=== PATIENT | female | born 1990 | race Caucasian/White ===

== ENCOUNTER 2017-01-16 11:49 | Emergency (ER) | payer OTHER ==
[2017-01-16 11:58] VITALS: BP 141/87
--- NOTE | 2017-01-16 13:11 | ED ---
Complex/Multi-Sys Presentation - HPI Summary HPI Summary: Pt presents to the hospital by EMS. Pt states she injects heroin 2 times a week x 3 years. Pt states she has narcan from the exchange. Pt states today she was down [facility] and had heroin. Pt states called her brother for a ride home. Brother, per report, found pt unresponsive and administered narcan. EMS called and gave an additional 2 doses of Narcan. Upon arrival to the ED, pt states she is embarrassed and mad at herself. Pt denies cp, sob, abd pain. Denies n/v. No fevers, chill. No concern for wound infection at injection sites. Pt without complaints at time of eval. Pt has never undergone detox, pt without current interest in detox - History Of Current Complaint Chief Complaint: EDOverdose Time Seen by Provider: 01/16/17 11:57 Hx Obtained From: Patient, EMS Onset/Duration: Lasting Minutes Timing: Minutes Severity Currently: None Severity Initially: Severe Location: Negative Associated Signs And Symptoms: Positive: Decreased Responsiveness, Weakness, Diaphoresis - Allergies/Home Medications Allergies/Adverse Reactions: Allergies Allergy/AdvReac Type Severity Reaction Status Date / Time Azithromycin [From Zithromax] Allergy Difficulty Verified 07/14/13 23:14 Breathing/Wheezing Clarithromycin [From Biaxin] Allergy Difficulty Verified 07/14/13 23:14 Breathing/Wheezing Home Medications: Home Medications LoraTADine TAB(NF) [Claritin 10 MG TAB(NF)] 10 mg PO DAILY 01/16/17 [History Confirmed 01/16/17] Mirtazapine TAB* [Remeron TAB*] 15 mg PO BEDTIME 01/16/17 [History Confirmed ] Omeprazole CAP* [Prilosec CAP* 20 MG] 40 mg PO DAILY 01/16/17 [History Confirmed 01/16/17] oxyCODONE TAB* [Roxycodone TAB 5 mg*] 20 mg PO Q6H PRN 01/16/17 [History Confirmed 01/16/17] PMH/Surg Hx/FS Hx/Imm Hx Previously Healthy: Yes Psychiatric History: Reports: Hx Anxiety Infectious Disease History: No Infectious Disease History: Denies: Traveled Outside the [place] in Last 30 Days - Family History Known Family History: Positive: Diabetes - mom - Social History Occupation: Unemployed Lives: Alone Alcohol Use: Rare Substance Use Type: Reports: None Hx Tobacco Use: Yes - 1/2 ppd Smoking Status (MU): Heavy Every Day Tobacco Smoker Review of Systems Constitutional: Negative Eyes: Negative ENT: Negative Cardiovascular: Negative Respiratory: Negative Gastrointestinal: Negative Genitourinary: Negative Musculoskeletal: Negative Skin: Negative Neurological: Negative Psychological: Normal All Other Systems Reviewed And Are Negative: Yes Physical Exam Triage Information Reviewed: Yes Vital Signs On Initial Exam: Initial Vitals Temp Pulse Resp BP Pulse Ox 98.1 F 97 20 141/87 95 01/16/17 11:53 01/16/17 11:53 01/16/17 11:53 01/16/17 11:53 01/16/17 11:53 Vital Signs Reviewed: Yes Appearance: Positive: Well-Appearing, No Pain Distress, Well-Nourished Skin: Positive: Warm, Skin Color Reflects Adequate Perfusion, Dry Head/Face: Positive: Normal Head/Face Inspection Eyes: Positive: Normal, EOMI, KEKE, Conjunctiva Clear ENT: Positive: Pharynx normal, TMs normal Neck: Positive: Supple, Nontender, No Lymphadenopathy Respiratory/Lung Sounds: Positive: Clear to Auscultation, Breath Sounds Present. Negative: Wheezes Cardiovascular: Positive: Normal, RRR. Negative: Murmur Abdomen Description: Positive: Nontender, No Organomegaly, Soft Bowel Sounds: Positive: Present Musculoskeletal: Positive: Normal Neurological: Positive: Normal, Sensory/Motor Intact, Alert, Oriented to Person Place, Time. Negative: Slurred Speech Psychiatric: Positive: Normal AVPU Assessment: Alert - Shelbi Coma Scale Best Eye Response: 4 - Spontaneous Best Motor Response: 6 - Obeys Commands Best Verbal Response: 5 - Oriented Diagnostics - Vital Signs Vital Signs Temp Pulse Resp BP Pulse Ox 01/16/17 11:53 98.1 F 97 20 141/87 95 - Laboratory Lab Statement: Any lab studies that have been ordered have been reviewed, and results considered in the medical decision making process. Re-Evaluation - Re-Evaluation First Eval Re-Evaluation Time: 12:48 Change: Improved - PT feels well, + po - no complaints states brother will bring her home and younger brother will be with her today and tonight Complex Multi-Symp Course/Dx Assessment/Plan: Pt presents by EMS following narcan use followig heroin injection. Pt without complaints at time of presentation. d/w pt - will monitor for 2 hours, brother will drive home and be with her at this time. Pt cooperative and in agreement with plan - Diagnoses Provider Diagnoses: Opiate abuse, episodic Discharge - Discharge Plan Condition: Stable Disposition: HOME Patient Education Materials: Narcotic Abuse (ED), Opioid Overdose (ED) Referrals: Joey Amin MD [Primary Care Provider] - Additional Instructions: you should be with another adult for the remainder of the day today and tonight discuss with [facility] or your doctor if you have desire for opiate detoxification
== END 2017-01-16 14:44 | disposition home or self-care (01) ==
LOC: ED 11:49
DX: F11.10 Opioid abuse, uncomplicated (principal)
CPT/HCPCS: 99283

== ENCOUNTER 2017-05-31 19:07 | Emergency (ER) | payer MEDICAID ==
[2017-05-31] MEDS ORDERED: Ondansetron INJ* 2 MG/ML VIAL IV ONE (20:04)
[2017-05-31] MEDS ORDERED: NS 0.9% 1000 ML* 1,000 ML IV ONE (20:04)
[2017-05-31] MEDS ORDERED: Morphine INJ* 2 MG/ML 1 ML SYRINGE IV ONE (20:04)
--- NOTE | 2017-05-31 20:39 | ED ---
I, Oh,Diana, scribed for Vicente Orantes MD on 05/31/17 at 2015 . Abdominal Pain/Female - HPI Summary HPI Summary: This 26 y/o female presents to ED for RUQ pain since 3 days ago. Family member present at bedside reports that pain was spontaneously alleviated 2 days ago, but came back last night. Positive n/v. Pt decided to visit ED when she became concerned about possible gallbladder attack. PMHx includes gastritis and chronic back pain. - History of Current Complaint Chief Complaint: EDAbdPain Stated Complaint: ABD PAIN,VOMITTING Time Seen by Provider: 05/31/17 19:56 Hx Obtained From: Patient, Family/Teacher Learning Disabled, Medical Records Timing: Intermittent Episode Lasting Pain Intensity: 8 Pain Scale Used: 0-10 Numeric Location: Discrete At: RUQ Radiates: No Aggravating Factor(s): Nothing Alleviating Factor(s): Nothing Associated Signs and Symptoms: Positive: Nausea, Vomiting. Negative: Fever Allergies/Adverse Reactions: Allergies Allergy/AdvReac Type Severity Reaction Status Date / Time Azithromycin [From Zithromax] Allergy Difficulty Verified 05/31/17 19:24 Breathing/Wheezing Clarithromycin [From Biaxin] Allergy Difficulty Verified 05/31/17 19:24 Breathing/Wheezing PMH/Surg Hx/FS Hx/Imm Hx GI History: Reports: Other GI Disorders - gastritis Musculoskeletal History: Reports: Hx Back Problems - chronic back pain Psychiatric History: Reports: Hx Anxiety Infectious Disease History: No Infectious Disease History: Denies: Traveled Outside the [place] in Last 30 Days - Family History Known Family History: Positive: Diabetes - mom - Social History Alcohol Use: Rare Substance Use Type: Reports: None Hx Tobacco Use: Yes - 1/2 ppd Smoking Status (MU): Heavy Every Day Tobacco Smoker Review of Systems Negative: Fever Positive: Abdominal Pain - RUQ, Vomiting, Nausea All Other Systems Reviewed And Are Negative: Yes Physical Exam Triage Information Reviewed: Yes Vital Signs On Initial Exam: Initial Vitals Temp Pulse Resp BP Pulse Ox 98.5 F 79 16 145/75 98 05/31/17 19:25 05/31/17 19:25 05/31/17 19:25 05/31/17 19:25 05/31/17 19:25 Vital Signs Reviewed: Yes Appearance: Positive: Pain Distress - mild discomfort, Obese Skin: Positive: Warm Head/Face: Positive: Normal Head/Face Inspection Eyes: Positive: KEKE ENT: Positive: Hearing grossly normal Neck: Positive: Supple Respiratory/Lung Sounds: Positive: Clear to Auscultation, Breath Sounds Present Cardiovascular: Positive: RRR Abdomen Description: Positive: Soft, Other: - mild ruq tendewrness. Negative: Guarding Bowel Sounds: Positive: Present Musculoskeletal: Positive: Strength/ROM Intact Neurological: Positive: Alert, Oriented to Person Place, Time Psychiatric: Positive: Affect/Mood Appropriate Diagnostics - Vital Signs Vital Signs Temp Pulse Resp BP Pulse Ox 05/31/17 19:25 98.5 F 79 16 145/75 98 - Laboratory Result Diagrams: 05/31/17 20:35 05/31/17 20:35 Lab Statement: Any lab studies that have been ordered have been reviewed, and results considered in the medical decision making process. - Additional Comments Diagnostic Additional Comments: US Gallbladder -- cholelithiasis without evidence of biliary duct dilation. Re-Evaluation - Re-Evaluation First Eval Re-Evaluation Time: 22:02 Change: Improved - results d/w pt Abdominal Pain Fem Course/Dx - Course Course Of Treatment: This 26 y/o female presents to ED for three days old RUQ pain and n/v. PMHx includes gastritis and chronic back pain. Blood work indicates elevated WBC of 14.2, mildly elevated CRP of 7.59, and lipase less than 10. US gallbladder is noted with cholelithiasis without biliary duct dilation. Pt is discharged with surgery referral. - Diagnoses Provider Diagnoses: Biliary colic Discharge - Discharge Plan Condition: Stable Disposition: HOME Prescriptions: Naproxen TAB* [Naprosyn 250 mg TAB*] 500 mg PO BID #20 tab Patient Education Materials: Naproxen (By mouth), Biliary Colic (ED) Referrals: Alejandra Leal MD [Medical Doctor] - The documentation as recorded by the Ashwin schulte Soohyun accurately reflects the service I personally performed and the decisions made by me, Vicente Orantes MD.
[2017-05-31 20:48] LABS: Hematocrit 45 % (35-47); Mean Corpuscular HGB Conc 34 g/dl (31-36); Mean Corpuscular Hemoglobin 30 pg (27-31); Mean Corpuscular Volume 88 fL (80-97); Mean Platelet Volume 8 um3 (7.4-10.4); Red Blood Count 5.07 10^6/ul (4.0-5.4); Red Cell Distribution Width 14 % (10.5-15); White Blood Count 14.2 10^3/ul (3.5-10.8)
[2017-05-31 21:04] LABS: ALT 17 U/L (7-52); AST 13 U/L (13-39); Albumin 4.5 g/dL (3.2-5.2); Alkaline Phosphatase 102 U/L (34-104); Anion Gap 8 mmol/L (2-11); BUN/Creatinine Ratio 14.5 (8-20); Blood Urea Nitrogen 10 mg/dL (6-24); C Reactive Protein 7.59 mg/L (< 5.00); CO2 Carbon Dioxide 28 mmol/L (22-32); Calcium 9.7 mg/dL (8.6-10.3); Chloride 101 mmol/L (101-111); EGFR African American 130.3 (>60); EGFR Non-African American 101.3 (>60); Globulin 3.2 g/dL (2-4); Glucose 115 mg/dL (70-100); Lipase < 10 U/L (11.0-82.0); Magnesium 1.9 mg/dL (1.9-2.7); Potassium 3.6 mmol/L (3.5-5.0); Sodium 137 mmol/L (133-145); Total Protein 7.7 g/dL (6.4-8.9)
[2017-05-31 21:35] VITALS: BP 125/53
--- NOTE | 2017-05-31 21:49 | RAD ---
Indication: Abdominal pain. Real-time sonography of the right upper quadrant was performed. The liver is normal in size. No focal lesions or intrahepatic ductal dilatation is noted. The gallbladder demonstrates gallstones. No pericholecystic fluid or wall thickening is identified. The common duct measures 4 mm. Right kidney measures 11.2 x 5.0 x 6.6 cm. No hydronephrosis is noted. The visualized portions of the pancreas are unremarkable although most of the pancreas is obscured by overlying gas. Aorta and inferior vena cava are grossly unremarkable. IMPRESSION: Cholelithiasis without evidence of biliary ductal dilatation.
[2017-05-31] MEDS ORDERED: Ketorolac INJ* 30 MG/ML 1 ML VIAL IV PUSH ONE (21:55)
== END 2017-05-31 22:32 | disposition home or self-care (01) ==
LOC: ED 19:07
DX: K80.50 Calculus of bile duct without cholangitis or cholecystitis without obstruction (principal); R11.2 Nausea with vomiting, unspecified; R10.11 Right upper quadrant pain; M54.9 Dorsalgia, unspecified
CPT/HCPCS: 36415; 76705; 80053; 83605; 83690; 83735; 84702; 85025; 86140; 96374; 96375; 99283; J1885; J2270; J2405

== ENCOUNTER 2017-06-03 12:13 | Day surgery (SDC) | payer MEDICAID ==
[~2017-06-03 12:13] MED LIST: Buffered Lidocaine 0.9% SYRIN* 5 ML/SYR SYRINGE INTRADERM ONE; Famotidine IV* 10 MG/ML 2 ML (20 mg) IV ONE; PROCHLORPERAZINE INJ 5 MG/ML 2 ML VIAL IV PRN; ceFAZolin 2 GM PREMIX (*) 100 ML IVPB ONE; ceFAZolin 2 GM PREMIX (*) 50 ML IVPB ONE
[2017-06-03] MEDS ORDERED: Buffered Lidocaine 0.9% SYRIN* 5 ML/SYR SYRINGE ONE ×2 (12:23)
[2017-06-03] MEDS ORDERED: Famotidine IV* 10 MG/ML 2 ML (20 mg) ONE ×2 (12:23)
[2017-06-03] MEDS ORDERED: Midazolam* 1 MG/ML 5 ML VIAL (5 MG) ONE ×2 (15:23)
[2017-06-03] MEDS ORDERED: KETAMINE HCL* 50 MG/ML 10 ML VIAL ONE ×2 (15:23)
[2017-06-03] MEDS ORDERED: fentaNYL* 50 MCG/ML 2 ML VIAL (100 MCG VIAL) ONE ×6 (15:23→17:54)
[2017-06-03] MEDS ORDERED: Bupivacaine 0.5% W/EPI SDV* 30 ML VIAL ONE ×2 (15:48)
[2017-06-03] MEDS ORDERED: Bupivacaine 0.25% SDV* 30 ML ONE (15:48)
[2017-06-03] MEDS ORDERED: Morphine INJ* 10 MG/ML 1 ML SYRINGE ONE ×4 (16:13→17:54)
[2017-06-03] MEDS ORDERED: Propofol* 10 MG/ML 20 ML BTL IV PUSH ONE ×2 (16:20)
[2017-06-03] MEDS ORDERED: Glycopyrrolate IV* 0.2 MG/ML 1 ML VIAL ONE ×2 (16:20)
[2017-06-03] MEDS ORDERED: PROCHLORPERAZINE INJ 5 MG/ML 2 ML VIAL ONE ×4 (16:20→17:48)
[2017-06-03] MEDS ORDERED: Lidocaine 2% PF * 5 ML VIAL ONE ×2 (16:20)
[2017-06-03] MEDS ORDERED: Neostigmine Methylsulfate* 2 MG/2 ML SYRINGE ONE ×2 (16:20)
[2017-06-03] MEDS ORDERED: Dexamethasone IV* 4 MG/ML 1 ML (4 MG) ONE ×2 (16:20)
[2017-06-03] MEDS ORDERED: Ondansetron INJ* 2 MG/ML VIAL ONE ×2 (16:20)
[2017-06-03] MEDS ORDERED: Ketorolac INJ* 30 MG/ML 1 ML VIAL ONE ×2 (17:25)
[2017-06-03] MEDS ORDERED: hydrALAZINE IV* 20 MG/ML VIAL ONE ×2 (17:31)
--- NOTE | 2017-06-03 17:38 | SURGPN ---
Brief Operative Note - Surgery Procedures: Procedures Pre-OP Diagnoses: acute cholecystitis Post-op Diagnosis: same Procedure: Laparoscopic cholecystectomy Surgeon: Linda Asst: Olivia Molinathebettya: GENO Romero EBL: 50cc IVF: 1300ccLR Specimen: gallbladder Drains: none
[2017-06-03] MEDS ORDERED: oxyCODONE/Acetamin 5/325 MG* TAB ONE ×2 (17:54)
[2017-06-03] MEDS: fentaNYL* 50 MCG/ML 2 ML VIAL (100 MCG VIAL) IV PRN ×2 (17:56→18:11)
[2017-06-03] MEDS: Morphine INJ* 2 MG/ML 1 ML SYRINGE IV PRN ×2 (17:58→18:12)
[2017-06-03] MEDS: oxyCODONE/Acetamin 5/325 MG* TAB PO PRN ×2 (18:18→18:19)
[2017-06-03 18:43] VITALS: BP 136/70
--- NOTE | 2017-06-04 13:21 | OP ---
CC: [facility] OPERATIVE REPORT: DATE OF OPERATION: 06/03/17 DATE OF : 86 SURGEON: James Mckeon MD HEALTHCARE INTERPRETER: FELI Urrutia ANESTHESIOLOGIST: Dr. Romero. ANESTHESIA: General anesthesia. PRE-OP DIAGNOSIS: Acute cholecystitis. POST-OP DIAGNOSIS: Acute cholecystitis. OPERATIVE PROCEDURE: Laparoscopic cholecystectomy. ESTIMATED BLOOD LOSS: 50 cc. FLUIDS: 1300 cc of crystalloid fluid given. SPECIMEN: Gallbladder. COUNTS: Lap pad count and instrument count correct at the end of procedure. DRAINS: None. DESCRIPTION OF PROCEDURE: The patient was identified in the preoperative area, marked, consent sign ed. I discussed the case with her going over the risks, benefits, and alternatives again, and the p atient agreed. We discussed the possible complications in a routine fashion. The patient was kyle d, brought to the operating room, placed on the operating room table in a supine position. Preoperat black antibiotics were given. Sequential devices were placed on bilateral lower extremities. General anesthesia was induced. The patient's abdomen was prepped and draped in the standard surgical [facility] ion. A time-out was performed. Folds of the umbilicus were elevated anteriorly and a Veress needle was attempted to be placed into the abdomen. This proved difficult and we abandoned this and made a right upper quadrant incision a long the costal margin just 2 fingerbreadths below, deepened down to the anterior fascia which was e levated and a Veress needle was inserted into the abdominal cavity, which was then allowed to insuff late to a pressure of 15 mmHg. She tolerated the pressure well and a 5 mm trocar was inserted into the periumbilical site. Laparoscope was inserted through this. There was no evidence of injury from the trocar insertion or from the Veress needle and Veress needle was removed, and a 5 mm trocar ins erted at the subcostal incision. Camera was shifted back to this and we looked for any injury from the initial Veress needle insertion. There was violation of peritoneum and looked like some effect to the omentum, but no discrete bleeding to suggest injury elsewhere. Camera was shifted back to the periumbilical incision. A 12 mm trocar was inserted into the subxiph oid area and another 5 mm in the right lateral site. Gallbladder was identified. This was inflamed . It was grasped with some difficulty and required drainage. We placed an aspiration needle, but o nly elsa out approximately 5 cc of very thick sludge. We elevated the gallbladder anteriorly and in fundibulum was not clearly identified. We could not see the common bile duct either given the patie nt's body habitus. Dissection was then utilized to free duodenum from what appeared to be the infundibulum of the gallb ladder. This did open up this plane and allowed us to draw the gallbladder up and out towards the r ight lower quadrant. Blunt and sharp dissection was carried out taking the peritoneum off the later al aspect of the gallbladder. Medial aspect similarly taken. A large stone was impacted in the inf undibulum that could not be moved. This made grasping somewhat of a challenge. The peritoneum was t hickened and both acute and chronically inflamed. Dissection was carried out isolating the cystic a rtery, which was doubly clipped and ligated. Cystic duct was ultimately dissected out and we had a c ritical view where it was the only single structure heading towards the gallbladder and its large st one. Even though we did not see effectively the common bile duct, we felt that this was the only str ucture and that was triply clipped and ligated. The gallbladder was then removed from the liver bed , placed in an endoscopic retrieval bag. The view of the cystic duct stump and cystic artery stump showed no bleeding or bile leak. Copious irrigation was used. There had been some bile leakage from the gallbladder during the grasping of t his. This was suctioned off and the effluent was clear. Cystic duct stump was within normal limits . The patient was placed back in the neutral position. Gallbladder in its endoscopic retrieval bag was brought out through the subxiphoid port site. Camera was shifted to this site and the periumbi lical port site, which had been upsized to a 12 mm trocar to encompass a larger and more robust came ra, was closed at the fascial layer with an 0 Polysorb suture using an Endoclose device. Abdomen wa s allowed to collapse. Trocars were removed under direct vision and all 4 skin incisions were reapp roximated with 4-0 Monocryl subcuticular sutures followed by Steri-Strips and sterile dressings. Th e patient tolerated the procedure well, was awoken up in the OR, and transferred to the PACU in stab le condition. [id number]/[facility] #: [id number]
== END 2017-06-03 19:03 | disposition home or self-care (01) ==
LOC: OR 12:13
PROVIDERS: ATTEND Surgery
DX: K80.12 Calculus of gallbladder with acute and chronic cholecystitis without obstruction (principal); F17.210 Nicotine dependence, cigarettes, uncomplicated
CPT/HCPCS: 81025; 88304; A9270-GY; J0360; J0690; J0780; J1100; J1885; J2250; J2270; J2405; J2704; J3010

== ENCOUNTER 2018-01-07 16:45 | Emergency (ER) | payer MEDICAID, OTHER ==
[2018-01-07 16:53] VITALS: BP 160/97
--- NOTE | 2018-01-07 21:41 | UC ---
Ervin Kang Gabriel, scribed for Julian Lynn MD on 01/07/18 at 1722 . Ear Complaint HPI - HPI Summary HPI Summary: This patient is a 27 year old F presenting to [facility] with a chief complaint of bilateral ear pain since 01-01-18. Pt is taking amoxicillin 500mg 2 times a day for the past 7 days and she is using antibiotic ear drops. The patient rates the pain 8/10 in severity. Patient reports sore throat. Patient denies sinus pain, rhinorrhea (worse than baseline), and fever. - History of Current Complaint Chief Complaint: UCEar Stated Complaint: EAR ACHE Time Seen by Provider: 01/07/18 17:13 Hx Obtained From: Patient Onset/Duration: Lasting Weeks, Still Present Severity Initially: Severe Severity Currently: Severe Pain Intensity: 8 Pain Scale Used: 0-10 Numeric Associated Signs/Symptoms: Negative: URI Symptoms - Allergies/Home Medications Allergies/Adverse Reactions: Allergies Allergy/AdvReac Type Severity Reaction Status Date / Time azithromycin Allergy Hives Verified 01/07/18 16:55 clarithromycin [From Biaxin] Allergy Hives Verified 01/07/18 16:55 latex Allergy Hives Verified 01/07/18 16:55 PMH/Surg Hx/FS Hx/Imm Hx Other History Of: Negative For: Anticoagulant Therapy - Surgical History Surgical History: Yes Surgery Procedure, Year, and Place: tonsillectomy in 5th grade. pilonidal excision 2007 - Family History Known Family History: Positive: Hypertension, Diabetes - mom, Other - CVA - Social History Alcohol Use: None Substance Use Type: None Smoking Status (MU): Heavy Every Day Tobacco Smoker Amount Used/How Often: smoking since 14 years old Household Exposure Type: Cigarettes Review of Systems Constitutional: Negative - fever ENT: Sore Throat, Ear Ache All Other Systems Reviewed And Are Negative: Yes Physical Exam - Summary Physical Exam Summary: VITAL SIGNS: Reviewed. GENERAL: Patient is a well developed and nourished F who is lying comfortable in the stretcher. Patient is not in any acute respiratory distress. HEAD AND FACE: Normocephalic EYES: PERRLA, EOMI x 2. EARS: Hearing grossly intact. MOUTH: Oropharynx within normal limits. NECK: Supple, trachea is midline, no adenopathy, no JVD, no carotid bruit. CHEST: Symmetric, no tenderness at palpation LUNGS: Clear to auscultation bilaterally. No wheezing or crackles. CVS: Regular rate and rhythm, S1 and S2 present, no murmurs or gallops appreciated. ABDOMEN: Soft, non-tender. Bowel sounds are normal. No abdominal abnormal pulsations. EXTREMITIES: Full ROM in all major joints, no edema, no cyanosis or clubbing. NEURO: Alert and oriented x 3. No acute neurological deficits. Speech is normal and follows commands. SKIN: Dry and warm Triage Information Reviewed: Yes Vital Signs: Initial Vital Signs Temp 97.6 F 01/07/18 16:50 Pulse 79 01/07/18 16:50 Resp 18 01/07/18 16:50 BP 160/97 01/07/18 16:50 Pulse Ox 100 01/07/18 16:50 Vital Signs Reviewed: Yes Re-Evaluation - Re-Evaluation First Eval Re-Evaluation Time: 18:06 Change: Unchanged Comment: I discussed test results and dischagre Ear Complaint Course/Dx - Course Course Of Treatment: This patient is a 27 year old F presenting to [facility] with a chief complaint of bilateral ear pain since 01-01-18. Pt is taking amoxicillin 500mg 2 times a day for the past 7 days and she is using antibiotic ear drops. The patient rates the pain 8/10 in severity. Patient reports sore throat. Patient denies sinus pain, rhinorrhea (worse than baseline), and fever. The patient was negative for influenza A, B, and strep. I discussed all the findings and test results with the patient. Patient was instructed to return to the urgent care or go to ER immediately if any of the symptoms return or worsens. Plan of care was discussed with the patient, and patient understands and agrees. All questions were answered to patient satisfaction. There were no further complaints or concerns. The patient was found to have increased BP in UC. The patient will follow up with PCP for better control of BP. - Differential Dx/Diagnosis Provider Diagnoses: URI and elevated blood pressure without a previous diagnoses of hypertension Discharge - Sign-Out/Discharge Documenting (check all that apply): Discharge - Discharge Plan Condition: Stable Disposition: HOME Prescriptions: Ibuprofen TAB* [Motrin TAB* 600 MG] 600 mg PO Q8H PRN #30 tab PRN Reason: Pain Patient Education Materials: Upper Respiratory Infection (ED) Referrals: [facility] [Outside] No Primary Care Phys,NOPCP [Primary Care Provider] - Additional Instructions: Take medications as instructed Increase your fluid intake Return to the UC if symptoms worsen Your blood pressure was elevated during today's visit. Please follow up with your primary care provider in 1-2 weeks. The documentation as recorded by the Ervin schulte Gabriel accurately reflects the service I personally performed and the decisions made by me, Julian Lynn MD.
== END 2018-01-07 18:15 | disposition home or self-care (01) ==
LOC: UCEAST 16:45
DX: J06.9 Acute upper respiratory infection, unspecified (principal); R03.0 Elevated blood-pressure reading, without diagnosis of hypertension; F17.210 Nicotine dependence, cigarettes, uncomplicated; Z88.3 Allergy status to other anti-infective agents
CPT/HCPCS: 87502; 87651; 99211; G0463

== ENCOUNTER 2018-02-14 16:06 | Emergency (ER) | payer OTHER ==
[2018-02-14 16:22] VITALS: BP 135/75
[2018-02-14] MEDS ORDERED: Sulfamethox/Trimethoprim DS 800/160* TAB PO ONE (16:43)
--- NOTE | 2018-02-14 16:44 | UC ---
Complaint Female HPI - HPI Summary HPI Summary: Pt presents with urinary pressure, frequency, and burning since early this morning. She found a left over amoxicillin at home and took that. She also took AZO today. She has had UTIs in the past and this feels the same. Denies fever, chills, abdominal pain, n/v/d/c, or flank pain. - History Of Current Complaint Chief Complaint: UCGU Stated Complaint: FREQUENT URINATION Time Seen by Provider: 02/14/18 16:40 Hx Obtained From: Patient Hx Last Menstrual Period: 01/04/18 Onset/Duration: Sudden Onset Timing: Constant Severity Initially: Severe Severity Currently: Severe Pain Intensity: 8 Pain Scale Used: 0-10 Numeric - Allergies/Home Medications Allergies/Adverse Reactions: Allergies Allergy/AdvReac Type Severity Reaction Status Date / Time azithromycin Allergy Hives Verified 02/14/18 16:18 clarithromycin [From Biaxin] Allergy Hives Verified 02/14/18 16:18 latex Allergy Hives Verified 02/14/18 16:18 Home Medications: Home Medications Buprenorphine HCl/Naloxone HCl [Suboxone 8 mg-2 mg Sl Film] 1 film .ROUTE TID [History Confirmed 02/14/18] PMH/Surg Hx/FS Hx/Imm Hx - Additional Past Medical History Additional PMH: None Previously Healthy: Yes Other History Of: Negative For: Anticoagulant Therapy - Surgical History Surgical History: Yes Surgery Procedure, Year, and Place: tonsillectomy in 5th grade. pilonidal excision 2007 - Family History Known Family History: Positive: Hypertension, Diabetes - mom, Other - CVA - Social History Lives: With Family Alcohol Use: None Substance Use Type: None Smoking Status (MU): Heavy Every Day Tobacco Smoker Amount Used/How Often: smoking since 14 years old Household Exposure Type: Cigarettes Review of Systems Constitutional: Negative Skin: Negative Respiratory: Negative Cardiovascular: Negative Gastrointestinal: Negative Genitourinary: Dysuria, Frequency, Urgency Neurovascular: Negative Neurological: Negative Psychological: Negative All Other Systems Reviewed And Are Negative: Yes Physical Exam - Summary Physical Exam Summary: GENERAL: NAD. WDWN. No pain distress. SKIN: No rashes, sores, lesions, or open wounds. NECK: Supple. Nontender. No lymphadenopathy. CHEST: CTAB. No r/r/w. No accessory muscle use. Breathing comfortably and in no distress. CV: RRR. Without m/r/g. Pulses intact. Brisk cap refill. ABDOMEN: Soft. NTTP. No distention or guarding. No organomegaly. No CVA tenderness. Bowel sounds present NEURO: Alert. CN II-XII grossly intact. PSYCH: Age appropriate behavior. Triage Information Reviewed: Yes Vital Signs: Initial Vital Signs Temp 98.0 F 02/14/18 16:18 Pulse 91 02/14/18 16:18 Resp 18 02/14/18 16:18 BP 135/75 02/14/18 16:18 Pulse Ox 97 02/14/18 16:18 Complaint Female Dx - Course Course Of Treatment: UA unrealiable as pt has taken amoxicillin and AZO today. Will send for culture and treat with Bactrim. - Differential Dx/Diagnosis Provider Diagnoses: UTI Discharge - Sign-Out/Discharge Documenting (check all that apply): Discharge/Admit/Transfer - Discharge Plan Condition: Stable Disposition: HOME Prescriptions: Sulfamethox/Trimethoprim DS* [Bactrim DS 800/160 TAB*] 1 tab PO BID #10 tab Patient Education Materials: Urinary Tract Infection in Women (ED) Referrals: No Primary Care Phys,NOPCP [Primary Care Provider] - Additional Instructions: If you develop a fever, shortness of breath, chest pain, new or worsening symptoms - please call your PCP or go to the ED. - Billing Disposition and Condition Condition: STABLE Disposition: HOME
== END 2018-02-14 16:59 | disposition home or self-care (01) ==
LOC: UCEAST 16:06
DX: N39.0 Urinary tract infection, site not specified (principal); B96.20 Unspecified Escherichia coli [E. coli] as the cause of diseases classified elsewhere; Z87.440 Personal history of urinary (tract) infections; Z88.1 Allergy status to other antibiotic agents; Z91.040 Latex allergy status; F17.210 Nicotine dependence, cigarettes, uncomplicated
CPT/HCPCS: 81003; 87077; 87086; 87186; 99212; A9270-GY; G0463

== ENCOUNTER 2019-02-11 23:08 | Emergency (ER) | payer OTHER ==
[2019-02-12 00:14] LABS: ABS Basophils 0.1 10^3/ul (0-0.2); ABS Eosinophils 0.5 10^3/ul (0-0.6); ABS Lymphocytes 3.3 10^3/ul (1.0-4.8); ABS Monocytes 0.5 10^3/ul (0-0.8); ABS Neutrophils 5.2 10^3/ul (1.5-7.7); ABS Nucleated RBC 0 10^3/ul; Eosinophil % 4.7 %; Hematocrit 43 % (33-41); Hemoglobin 14.3 g/dL (12.0-16.0); Lymphocyte % 34.4 %; Mean Corpuscular HGB Conc 34 g/dL (31-36); Mean Corpuscular Hemoglobin 30 pg (27-31); Mean Corpuscular Volume 89 fL (80-97); Mean Platelet Volume 7.7 fL (7.4-10.4); Nucleated Red Blood Cells % 0; Platelet Count 324 10^3/uL (150-450); Red Blood Count 4.83 10^6 /uL (3.70-4.87); Red Cell Distribution Width 13 % (10.5-15); White Blood Count 9.6 10^3/uL (3.5-10.8)
[2019-02-12 00:39] LABS: Albumin 4.5 g/dL (3.2-5.2); Albumin/Globulin Ratio 1.5 (1-3); Calcium 9.9 mg/dL (8.6-10.3); EGFR African American 101.9 (>60); EGFR Non-African American 84.2 (>60); Potassium 4.1 mmol/L (3.5-5.0); Total Bilirubin 0.4 mg/dL (0.2-1.0); Total Protein 7.5 g/dL (6.4-8.9)
--- NOTE | 2019-02-12 02:54 | ED ---
- HPI Summary HPI Summary: This patient is a 28 year old F [facility] [place] by with a chief complaint of vaginal bleeding that began earlier tonight. The patient rates the pain 0/10 in severity. Symptoms aggravated by nothing. Symptoms alleviated by nothing. Patient reports left-sided abd cramping. - History of Current Complaint Chief Complaint: EDOBProblems Stated Complaint: "PREG AND BLEEDING" PER PT Time Seen by Provider: 02/12/19 02:48 Hx Obtained From: Patient Chief Complaint: Vaginal Bleeding Onset/Duration: Started Hours Ago, Atraumatic, Still Present Timing: Constant Severity: Mild Current Severity: Mild Pain Intensity: 0 Character: Cramping Aggravating Factors: Nothing Alleviating Factors: Nothing - Assessment Hx Now: No - Allergies/Home Medications Allergies/Adverse Reactions: Allergies Allergy/AdvReac Type Severity Reaction Status Date / Time azithromycin Allergy Hives Verified 02/14/18 16:18 clarithromycin [From Biaxin] Allergy Hives Verified 02/14/18 16:18 latex Allergy Hives Verified 02/14/18 16:18 PMH/Surg Hx/FS Hx/Imm Hx Previously Healthy: No Endocrine/Hematology History: Denies: Hx Anticoagulant Therapy, Hx Diabetes, Hx Thyroid Disease Cardiovascular History: Denies: Hx Hypertension Respiratory History: Denies: Hx Asthma, Hx Chronic Obstructive Pulmonary Disease (COPD) GI History: Reports: Hx Gastroesophageal Reflux Disease - no meds, Other GI Disorders - gastritis Denies: Hx Ulcer Musculoskeletal History: Reports: Hx Back Problems - chronic back pain Sensory History: Denies: Hx Contacts or Glasses, Hx Hearing Aid Opthamlomology History: Denies: Hx Contacts or Glasses Psychiatric History: Reports: Hx Anxiety - Cancer History Hx Chemotherapy: No - Surgical History Surgery Procedure, Year, and Place: tonsillectomy in 5th grade. pilonidal excision 2008 Hx Anesthesia Reactions: No Infectious Disease History: No Infectious Disease History: Denies: Hx Hepatitis, Hx Human Immunodeficiency Virus (HIV), Traveled Outside the [place] in Last 30 Days - Family History Known Family History: Positive: Hypertension, Diabetes - mom, Other - CVA - Social History Occupation: Unemployed Lives: With Family Alcohol Use: None Hx Substance Use: No Substance Use Type: Reports: None Hx Tobacco Use: Yes - 1/2 ppd Smoking Status (MU): Heavy Every Day Tobacco Smoker Amount Used/How Often: smoking since 14 years old Review of Systems Positive: Other - Positive abd cramping Genitourinary: Other - Positive vaginal bleeding All Other Systems Reviewed And Are Negative: Yes Physical Exam - Summary Physical Exam Summary: Appearance: Well appearing, no pain distress Skin: warm, dry, reflects adequate perfusion Head/face: normal Eyes: EOMI, KEKE ENT: normal Neck: supple, non-tender Respiratory: CTA, breath sounds present Cardiovascular: RRR, pulses symmetrical Abdomen: non-tender, soft Musculoskeletal: normal, strength/ROM intact Neuro: normal, sensory motor intact, A&Ox3 - Physical Exam Triage Information Reviewed: Yes Vital Signs Reviewed: Yes Diagnostics - Vital Signs Vital Signs Temp Pulse Resp BP Pulse Ox 02/12/19 02:50 79 97 02/12/19 02:48 77 140/68 96 02/12/19 01:36 99.8 F 79 16 150/82 96 02/11/19 23:24 99.1 F 84 20 165/85 97 - Laboratory Lab Results: Lab Results 02/12/19 02/12/19 02/12/19 Range/Units 00:08 00:08 00:08 WBC 9.6 (3.5-10.8) 10^3/uL RBC 4.83 (3.70-4.87) 10^6 /uL Hgb 14.3 (12.0-16.0) g/dL Hct 43 H (33-41) % MCV 89 (80-97) fL MCH 30 (27-31) pg MCHC 34 (31-36) g/dL RDW 13 (10.5-15) % Plt Count 324 (150-450) 10^3/uL MPV 7.7 (7.4-10.4) fL Neut % (Auto) 54.4 % Lymph % (Auto) 34.4 % Randall % (Auto) 5.6 % Eos % (Auto) 4.7 % Baso % (Auto) 0.9 % Absolute Neuts (auto) 5.2 (1.5-7.7) 10^3/ul Absolute Lymphs (auto) 3.3 (1.0-4.8) 10^3/ul Absolute Monos (auto) 0.5 (0-0.8) 10^3/ul Absolute Eos (auto) 0.5 (0-0.6) 10^3/ul Absolute Basos (auto) 0.1 (0-0.2) 10^3/ul Absolute Nucleated RBC 0 10^3/ul Nucleated RBC % 0 Sodium 137 (135-145) mmol/L Potassium 4.1 (3.5-5.0) mmol/L Chloride 99 L (101-111) mmol/L Carbon Dioxide 32 (22-32) mmol/L Anion Gap 6 (2-11) mmol/L BUN 16 (6-24) mg/dL Creatinine 0.80 (0.51-0.95) mg/dL Est GFR ( Amer) 101.9 (>60) Est GFR (Non-Af Amer) 84.2 (>60) BUN/Creatinine Ratio 20.0 (8-20) Glucose 107 H (70-100) mg/dL Calcium 9.9 (8.6-10.3) mg/dL Total Bilirubin 0.40 (0.2-1.0) mg/dL AST 61 H (13-39) U/L ALT 143 H (7-52) U/L Alkaline Phosphatase 87 (34-104) U/L Total Protein 7.5 (6.4-8.9) g/dL Albumin 4.5 (3.2-5.2) g/dL Globulin 3.0 (2-4) g/dL Albumin/Globulin Ratio 1.5 (1-3) Beta HCG, Quant 3542.00 mIU/mL Blood Type A Positive Result Diagrams: 02/12/19 00:08 02/12/19 00:08 Lab Statement: Any lab studies that have been ordered have been reviewed, and results considered in the medical decision making process. - Additional Comments Diagnostic Additional Comments: Transvaginal US reveals, per radiologist, no sonographic evidence for intrauterine . ED physician has reviewed this radiology report. Course/Dx - Course Course Of Treatment: This patient is a 28 year old F presenting to [facility] accompanied by with a chief complaint of vaginal bleeding that began earlier tonight. Physical Exam Findings: Nml. Transvaginal US reveals, per radiologist, no sonographic evidence for intrauterine . Bloodwork obtained. Patient will be discharged with follow up from PCP. The patient is agreeable with this plan. - Differential Diagnosis/HQI/PQRI: Threatened , Intrauterine , Vaginal Bleeding - Diagnoses Provider Diagnoses: Threatened Discharge - Sign-Out/Discharge Documenting (check all that apply): Patient Departure - Discharge home Patient Received Moderate/Deep Sedation with Procedure: No - Discharge Plan Condition: Stable Disposition: HOME Patient Education Materials: Threatened Miscarriage (ED) Referrals: Chantell Vigil MD [Primary Care Provider] - 2 Days Additional Instructions: RETURN TO THE EMERGENCY DEPARTMENT FOR NEW OR WORSENING SYMPTOMS - Billing Disposition and Condition Condition: STABLE Disposition: Home - Attestation Statements Document Initiated by Scribe: Yes Documenting Scribe: Nicole Chow Provider For Whom Jhonatane is Documenting (Include Credential): Dr. Mitchell Gtz MD Scribe Attestation: Nicole Kang scribed for Dr. Mitchell Gtz MD on 02/12/19 at 0457. Scribe Documentation Reviewed: Yes Provider Attestation: The documentation as recorded by the Nicole schulte accurately reflects the service I personally performed and the decisions made by me, Dr. Mitchell Gtz MD Status of Scribe Document: Viewed
[2019-02-12 04:05] VITALS: BP 125/67
== END 2019-02-12 05:00 | disposition home or self-care (01) ==
LOC: ED 23:08
DX: O20.0 Threatened abortion (principal); O99.330 Smoking (tobacco) complicating pregnancy, unspecified trimester; F17.210 Nicotine dependence, cigarettes, uncomplicated; K21.9 Gastro-esophageal reflux disease without esophagitis; Z3A.00 Weeks of gestation of pregnancy not specified; Z88.3 Allergy status to other anti-infective agents; Z91.040 Latex allergy status
CPT/HCPCS: 36415; 76817; 80053; 84702; 85025; 86900; 86901; 99282

== ENCOUNTER 2019-06-05 16:49 | Emergency (ER) | payer OTHER ==
[2019-06-05] MEDS ORDERED: Ketorolac INJ* 30 MG/ML 1 ML VIAL IM ONE (17:45)
[2019-06-05] MEDS ORDERED: Diazepam TAB(*) 5 MG PO ONE ×3 (17:45→19:29)
[2019-06-05] MEDS ORDERED: Lidocaine PATCH 5%* 1 PATCH TRANSDERM SCH (18:00)
--- NOTE | 2019-06-05 19:01 | ED ---
Back Pain - HPI Summary HPI Summary: Patient complains of right upper back and right side neck pain 2 days. States shock down both arms when she moves arms in certain ways. States she noticed pain started just after she reached for something on a high shelf to [place] yesterday. Denies any heavy lifting, trauma, fever, cough, sore throat, CP, SOB , N/V/D, abdominal pain, change in urine, change in BM. Medical history is none. - History of Current Complaint Chief Complaint: EDBackInjuryPain Stated Complaint: BACK/NECK AND SHOULDER PAIN PER PT Time Seen by Provider: 06/05/19 17:34 Hx Obtained From: Patient Hx Last Menstrual Period: 01/04/18 Onset/Duration: Gradual Onset, Lasting Days Onset/Duration: Started Days Ago Timing: Constant Severity Initially: Mild Severity Currently: Severe Pain Intensity: 9 Pain Scale Used: 0-10 Numeric Character: Sharp, Dull, Aching, Throbbing Aggravating Symptom(s): Movement, Walking Alleviating Symptom(s): Rest, Position Associated Signs And Symptoms: Positive: Numbness, Tingling - Allergies/Home Medications Allergies/Adverse Reactions: Allergies Allergy/AdvReac Type Severity Reaction Status Date / Time azithromycin Allergy Hives Verified 06/05/19 16:56 clarithromycin [From Biaxin] Allergy Hives Verified 06/05/19 16:56 latex Allergy Hives Verified 06/05/19 16:56 PMH/Surg Hx/FS Hx/Imm Hx Endocrine/Hematology History: Denies: Hx Anticoagulant Therapy, Hx Diabetes, Hx Thyroid Disease Cardiovascular History: Denies: Hx Hypertension Respiratory History: Denies: Hx Asthma, Hx Chronic Obstructive Pulmonary Disease (COPD) GI History: Reports: Hx Gastroesophageal Reflux Disease - no meds, Other GI Disorders - gastritis Denies: Hx Ulcer Musculoskeletal History: Reports: Hx Back Problems - chronic back pain Sensory History: Denies: Hx Contacts or Glasses, Hx Hearing Aid Opthamlomology History: Denies: Hx Contacts or Glasses EENT History: Denies: Hx Deafness Psychiatric History: Reports: Hx Anxiety - Cancer History Hx Chemotherapy: No - Surgical History Surgery Procedure, Year, and Place: tonsillectomy in 5th grade. pilonidal excision 2007 Hx Anesthesia Reactions: No Infectious Disease History: No Infectious Disease History: Denies: Hx Hepatitis, Hx Human Immunodeficiency Virus (HIV), Traveled Outside the [place] in Last 30 Days - Family History Known Family History: Positive: Hypertension, Diabetes - mom, Other - CVA - Social History Alcohol Use: None Hx Substance Use: No Substance Use Type: Reports: None Hx Tobacco Use: Yes - 1/2 ppd Smoking Status (MU): Heavy Every Day Tobacco Smoker Amount Used/How Often: smoking since 14 years old Review of Systems Constitutional: Negative Eyes: Negative ENT: Negative Cardiovascular: Negative Respiratory: Negative Gastrointestinal: Negative Genitourinary: Negative Musculoskeletal: Other Skin: Negative Neurological: Negative Psychological: Normal All Other Systems Reviewed And Are Negative: Yes Physical Exam - Summary Physical Exam Summary: Neuro exam normal. Normal inspector boiler strength bilaterally in upper extremities. Normal range of motion of both bilateral upper extremities. Full range of motion of neck and jaw. Pain with palpation of right sternocleidomastoid, right trapezius and right paraspinal muscles of cervical and thoracic spine. PMS intact distally bilateral upper extremities. Triage Information Reviewed: Yes Vital Signs On Initial Exam: Initial Vitals Temp Pulse Resp BP Pulse Ox 98.2 F 100 16 123/76 98 06/05/19 16:51 06/05/19 16:51 06/05/19 16:51 06/05/19 16:51 06/05/19 16:51 Vital Signs Reviewed: Yes Appearance: Positive: Well-Appearing Skin: Positive: Warm Head/Face: Positive: Normal Head/Face Inspection Eyes: Positive: Normal Neck: Positive: Supple Respiratory/Lung Sounds: Positive: Clear to Auscultation Cardiovascular: Positive: Normal Abdomen Description: Positive: Nontender Musculoskeletal: Positive: Normal Neurological: Positive: Normal Psychiatric: Positive: Normal AVPU Assessment: Alert - Shelbi Coma Scale Best Eye Response: 4 - Spontaneous Best Motor Response: 6 - Obeys Commands Best Verbal Response: 5 - Oriented Coma Scale Total: 15 Diagnostics - Vital Signs Vital Signs Temp Pulse Resp BP Pulse Ox 06/05/19 17:59 18 06/05/19 16:51 98.2 F 100 16 123/76 98 - Laboratory Lab Statement: Any lab studies that have been ordered have been reviewed, and results considered in the medical decision making process. Back Pain Course/Dx - Course Course Of Treatment: Patient complains of right upper back and right side neck pain 2 days. States shock down both arms when she moves arms in certain ways. States she noticed pain started just after she reached for something on a high shelf to [place] yesterday. Denies any heavy lifting, trauma, fever, cough , sore throat, CP, SOB, N/V/D, abdominal pain, change in urine, change in BM. Medical history is none. Vital signs within normal limits. Patient improved with lidocaine topical patch, Toradol 30 mg IM, Valium 5 mg by mouth. Rx for Flexeril and lidocaine patch. - Diagnoses Provider Diagnoses: Acute back pain Discharge - Sign-Out/Discharge Documenting (check all that apply): Patient Departure Patient Received Moderate/Deep Sedation with Procedure: No - Discharge Plan Condition: Stable Disposition: HOME Prescriptions: Cyclobenzaprine TAB* [Flexeril 10 MG TAB*] 10 mg PO TID PRN 5 Days #15 tab PRN Reason: Pain - Severe Diazepam TAB(*) [Valium TAB(*)] 5 mg PO TID PRN 2 Days #4 tab MDD 3 tabs PRN Reason: Pain - Severe Lidocaine PATCH 5%* [Lidoderm 5% Patch*] 1 patch TRANSDERM DAILY 4 Days #4 patch Patient Education Materials: Muscle Spasm (ED) Referrals: Chantell Vigil MD [Primary Care Provider] - Additional Instructions: Used lidocaine patch as directed. Take Flexeril as directed. Alternate ibuprofen 600 mg with Tylenol 650 mg every 3 hours for 3 days for back pain. Return to the ED for any worsening symptoms. - Billing Disposition and Condition Condition: STABLE Disposition: Home
[2019-06-05 19:51] VITALS: BP 141/77
[2019-06-05] MEDS ORDERED: Lidocaine Patch REMOVE* 1 NOTE MISC SCH (21:00)
== END 2019-06-05 19:50 | disposition home or self-care (01) ==
LOC: ED 16:49
DX: M54.9 Dorsalgia, unspecified (principal); F17.210 Nicotine dependence, cigarettes, uncomplicated; Z88.1 Allergy status to other antibiotic agents; Z91.040 Latex allergy status
CPT/HCPCS: 96372; 99282; A9270-GY; J1885